=== PATIENT | female | born 1995 ===

== ENCOUNTER 2018-08-12 08:05 | Day surgery (SDC) | payer BC, OTHER ==
[~2018-08-12] VITALS: Ht 157.5 cm; Wt 65.3 kg
[2018-08-12] MEDS ORDERED: LACTATED RINGERS 1,000 ML IV SCH (08:38)
[2018-08-12] MEDS ORDERED: MESA1.2T PO (09:09)
[2018-08-12] MEDS ORDERED: ESCI10TA10 PO (09:09)
[2018-08-12] MEDS ORDERED: HYDR-3240 PO (09:09)
[2018-08-12 09:11] VITALS: BP 124/84
[2018-08-12] MEDS ORDERED: FENTANYL PF 100 MCG/2ML ONE ×2 (09:37)
[2018-08-12] MEDS ORDERED: MIDAZOLAM 1 MG/ML, 2ML ONE ×2 (09:37)
[2018-08-12] MEDS ORDERED: PROPOFOL 50 ML ONE (09:40)
[2018-08-12] MEDS ORDERED: CEFAZOLIN 1,000 MG ONE (09:48)
[2018-08-12] MEDS ORDERED: HYDROmorphone 1 MG/ML, 1ML IV PRN (10:00)
[2018-08-12] MEDS ORDERED: HALOPERIDOL 5 MG/ML IV PRN (10:00)
[2018-08-12] MEDS ORDERED: FENTANYL PF 100 MCG/2ML IV PRN (10:00)
[2018-08-12] MEDS ORDERED: PROMETHAZINE 25 MG/ML, 1ML IV PRN (10:00)
[2018-08-12] MEDS ORDERED: OXYcodone 5 MG/5 ML ORAL.SOL UDC PO PRN (10:00)
[2018-08-12] MEDS ORDERED: MEPERIDINE/PF 25MG/0.5ML IVPush PRN (10:00)
[2018-08-12] MEDS ORDERED: LABETALOL 5MG/ML, 20ML IV PRN (10:00)
[2018-08-12] MEDS ORDERED: hydrALAzine 20 MG/ML, 1ML IV PRN (10:00)
[2018-08-12] MEDS ORDERED: LORazepam 2 MG/ML, 1ML IVPush PRN (10:00)
[2018-08-12] MEDS ORDERED: OXYcodone 5 MG/5 ML ORAL.SOL UDC ONE (10:38)
[2018-08-12] MEDS ORDERED: MEPERIDINE/PF 50 MG/ML ONE (10:47)
== END 2018-08-12 12:00 | disposition home or self-care (01) ==
LOC: OUT 08:05
PROVIDERS: ATTEND Internal Medicine
DX: K52.9 Noninfective gastroenteritis and colitis, unspecified (principal); K62.89 Other specified diseases of anus and rectum
CPT/HCPCS: 45341; J0690; J2250; J2704; J3010; J7120